=== PATIENT | female | born 1990 | race Asian ===

== ENCOUNTER 2018-08-07 07:25 | Inpatient (IN) | payer OTHER, SELFPAY ==
[2018-08-07] MEDS: Lactated Ringers 1,000 ML 15 ML IV (08:10)
[2018-08-07 08:29] LABS: Absolute Lymphocyte Count 1.78 X10^3/ul (0.83-4.51); Absolute Neutrophil Count 8.1 X10^3/uL (2.0-7.7); Basophil# 0.03 X10^3/uL; Basophil% 0.3 % (0-1); Eosinophil# 0.06 X10^3/uL; Eosinophils% 0.6 % (0-5); Hematocrit 36.8 % (37-47); Hemoglobin 11.5 g/dl (12.0-15.0); Lymphocyte # 1.78 X10^3/ul (4.0); Lymphocyte % 16.6 % (19-41); Mean Corp Hgb Conc 31.3 g/gl (32-36); Mean Corpuscular Hgb 25.7 pg (27.0-32.0); Mean Corpuscular Volume 82.1 fL (81-99); Mean Platelet Vol. 10.3 fl (6.2-12.0); Monocyte# 0.76 X10^3/uL; Monocyte% 7.1 % (0-10); Neutrophil # 8.05 X10^3/uL (2.7-7.7); Neutrophil % 75.2 % (47-70); Platelet Count 230 K/mm3 (150-450); RBC Distribution Width SD 39.2 fl (35.1-43.9); Red Blood Count 4.48 M/mm3 (4.2-5.4); White Blood Count 10.7 K/mm3 (4.4-11.0)
[2018-08-07 08:31] LABS: POSITIVE COUNT NO; POSITIVE DIFFERENTIAL NO; POSITIVE MORPHOLOGY NO
[2018-08-07] MEDS: Oxytocin 30 units/NS 500 ml 30 UNITS/500 ML IV.SOLN 334 UNITS IV (08:46)
[2018-08-07] MEDS: Acetaminophen 325 MG Tablet PO (09:17)
[2018-08-07 09:20] VITALS: BMI 23.7
[2018-08-07] MEDS: Oxytocin 30 units/NS 500 ml 30 UNITS/500 ML IV.SOLN 167 UNITS IV (09:42)
[2018-08-07] MEDS: Methylergonovine 0.2 MG/ML Ampul IM (10:07)
--- NOTE | 2018-08-07 10:13 | PCM.HP.OB ---
History Date of Admission: 08/07/18 Final AFIA: 08/10/18 Final AFIA Source: US <20 weeks Gestational age: 39 Weeks and 4 Days History of this : This is a 27 year-old, G [2], P [1], at 39+4 weeks gestational age presenting with to labor and delivery reporting initiation of ctx at 0300. Patient quickly had regular contractions less than 5 minutes apart. Patient denies VB or LOF. Patient has had uncomplicated course. Allergies No Known Allergies Allergy (Verified 08/07/18 09:11) Smoking Status: Never smoker Alcohol: None Number of Fetus(es): 1 Heart Tracing: Category I FHT noted on admission TOCO Analysis: Ctx q 2-3 minutes apart, lasting 60 seconds and palpating moderately to strong History Past Pregnancies: Past Pregnancies Delivery Date Name GA/Weeks Outcome Route Weight Infant Gender Labor Length Anesthesia Delivery Location Provider FOB 10/2015 41 weeks Live 7#1oz Female Labs: Pap negative, B+ Abs Neg, Rubella Immune, HepBsAg Neg, Syphilis NR, HIV NR, GC/CT Neg/Neg, Urine Tox Neg, Urine Culture Neg, Sequential Screen Neg, CBC WNL x 2, 1 hour GCT= 91, GBS neg Expected Infant Delivery Method: Spontaneous Vaginal Describe any other labor & delivery plans:: Desires epidural Number of Visits: 12 Review of Systems Constitutional: Denies: Chills, Fever, Weight Change HEENT: Denies: Head Aches, Sinus Congestion, Sinus Drainage Cardiovascular: Denies: Chest Pain, Palpitations Respiratory: Denies: Cough, Shortness of breath at rest, Sputum production Gastrointestinal: Denies: Abdominal Pain, Nausea, Vomiting Genitourinary: Denies: Dysuria Musculoskeletal: Denies: Joint Pain, Joint Tenderness Skin: Denies: Rash, Wounds Neurological: Denies: Numbness, Tingling, Focal weakness Psychiatric: Denies: Anxiety, Depression, Homicidal Ideations, Suicidal Ideations Hematologic/ Lymphatic: Denies: Easy Bruising, Easy Bleeding Unable to obtain accurate/complete ROS d/t: Language line with Biologics Specialist used to help complete ROS Physical Exam Vitals: See nursing notes for VS - VSS, Afebrile General: Alert, Oriented x3, No apparent distress HEENT: Atraumatic, Normocephalic. Negative for: Thyromegaly, Lymphadenopathy Cardiovascular: Regular rate, Regular Rhythm Lungs: Normal air movement Abdomen: Non Tender, Gravid, Appropriate for Gestational Age - EFW = 7# Neurological: Deep Tendon Reflexes 2+/4 and Symmetrical, Neuro grossly intact BIOMETRICS ANALYST: Normal external genitalia. Negative for: Vulvar lesions Estimated gestational size: Appropriate for gestational size Presentation: Cephalic Cervix Dilation (cm): 7 - Per urogynecology physician exam Station: 1 Effacement (%): 90 Assessment/Plan This is a 27 year-old, G [2], P [1], at 39+4 weeks gestational age, Active Labor, Category I FHT 1) Admit patient, Dr. Nolan OB back-up aware of admission 2) Anticipate Rylee Aceevdo APRN-MURIEL
--- NOTE | 2018-08-07 10:17 | HP.PCM_ITS ---
History Date of Admission: 08/07/18 Final AFIA: 08/10/18 Final AFIA Source: US <20 weeks Gestational age: 39 Weeks and 4 Days History of this : This is a 27 year-old, G [2], P [1], at 39+4 weeks gestational age presenting with to labor and delivery reporting initiation of ctx at 0300. Patient quickly had regular contractions less than 5 minutes apart. Patient denies VB or LOF. Patient has had uncomplicated course. Allergies No Known Allergies Allergy (Verified 08/07/18 09:11) Smoking Status: Never smoker Alcohol: None Number of Fetus(es): 1 Heart Tracing: Category I FHT noted on admission TOCO Analysis: Ctx q 2-3 minutes apart, lasting 60 seconds and palpating moderately to strong History Past Pregnancies: Past Pregnancies Delivery Date Name GA/Weeks Outcome Route Weight Infant Gender Labor Length Anesthesia Delivery Location Provider FOB 10/2015 41 weeks Live 7#1oz Female Labs: Pap negative, B+ Abs Neg, Rubella Immune, HepBsAg Neg, Syphilis NR, HIV NR, GC/CT Neg/Neg, Urine Tox Neg, Urine Culture Neg, Sequential Screen Neg, CBC WNL x 2, 1 hour GCT= 91, GBS neg Expected Infant Delivery Method: Spontaneous Vaginal Describe any other labor & delivery plans:: Desires epidural Number of Visits: 12 Review of Systems Constitutional: Denies: Chills, Fever, Weight Change HEENT: Denies: Head Aches, Sinus Congestion, Sinus Drainage Cardiovascular: Denies: Chest Pain, Palpitations Respiratory: Denies: Cough, Shortness of breath at rest, Sputum production Gastrointestinal: Denies: Abdominal Pain, Nausea, Vomiting Genitourinary: Denies: Dysuria Musculoskeletal: Denies: Joint Pain, Joint Tenderness Skin: Denies: Rash, Wounds Neurological: Denies: Numbness, Tingling, Focal weakness Psychiatric: Denies: Anxiety, Depression, Homicidal Ideations, Suicidal Ideations Hematologic/ Lymphatic: Denies: Easy Bruising, Easy Bleeding Unable to obtain accurate/complete ROS d/t: Language line with Tool Grinder Operator Surface used to help complete ROS Physical Exam Vitals: See nursing notes for VS - VSS, Afebrile General: Alert, Oriented x3, No apparent distress HEENT: Atraumatic, Normocephalic. Negative for: Thyromegaly, Lymphadenopathy Cardiovascular: Regular rate, Regular Rhythm Lungs: Normal air movement Abdomen: Non Tender, Gravid, Appropriate for Gestational Age - EFW = 7# Neurological: Deep Tendon Reflexes 2+/4 and Symmetrical, Neuro grossly intact RESIDENTIAL YOUTH COUNSELOR: Normal external genitalia. Negative for: Vulvar lesions Estimated gestational size: Appropriate for gestational size Presentation: Cephalic Cervix Dilation (cm): 7 - Per admissions specialist exam Station: 1 Effacement (%): 90 Assessment/Plan This is a 27 year-old, G [2], P [1], at 39+4 weeks gestational age, Active Labor, Category I FHT 1) Admit patient, Dr. Nolan OB back-up aware of admission 2) Anticipate Rylee Acevedo APRN-MURIEL
--- NOTE | 2018-08-07 10:26 | PCM.OPRPT ---
Report of Operation Date of Procedure: 08/07/18 Pre-Operative Diagnosis: Spontaneous Labor Post-Operative Diagnosis: of viable Female, 2nd degree perinal laceration Vaginal Delivery Maternal Presentation: Active Labor Amniotic Membrane Rupture Type: Artificial - By this provider at complete +2 station Amniotic Fluid Description: Clear Final AFIA: 08/10/18 Final AFIA Source: US <20 weeks Gestational age: 39 Weeks and 4 Days Date of Procedure: 08/07/18 Surgery/ Procedure Performed: Spontaneous Vaginal Delivery Type of Anesthesia: None Description of Procedure: Patient pushed well to crown and delivered a viable girl baby over 2nd degree lacerated perineum. head delivered OA and then restituted to MARY and LOT. Anterior shoulders delivered without difficulty followed by posterior shoulder and body. with spontaneous cry and respirations, Apgars 8 and 9. weight pending. Infant dried and stimulated on maternal chest and mouth and nose bulb suctioned. Umbilical cord clamped and cut by FOB once it stopped pulsing. Placenta delivered spontaneously via Shultz mechanism intact with 3VC. Placental triage WNL. FF midline 3FB below umbilicus, IV pitocin infusing per protocol for active management of the 3rd stage. Upon inspection of vaginal vault, 2nd degree perineal laceration repaired in the usual fashion with Lidocaine local analgesia and 3-0 rapide suture. Sponge and needle count correct. EBL = 250cc. Skin to skin and bonding initiated. started. Dr. Nolan notified of delivery. Rylee Acevedo WINDOWS SYSTEMS ADMINISTRATOR-CNM Presentation: Vertex, MARY Placental Delivery Description: Spontaneous Cord Vessel Description: 3 Vessels Cord Entanglement: None Estimated Blood Loss: 250 A gender: Female (1 minute): 8 (5 minute): 9 Episiotomy Description: None Laceration: Midline, Perineal Extension/lac, 2nd degree Medications given after delivery: IV Pitocin Complications: None
[2018-08-07] MEDS: Naproxen 250 MG Tablet 500 MG PO ×2 (11:05→19:41)
[2018-08-07 13:00] VITALS: BP 111/67; PULSE 85; RESP 16; TEMP 37.2
[2018-08-07 16:00] VITALS: BP 104/63; PULSE 87; RESP 16; TEMP 37.1
[2018-08-07 19:34] VITALS: BP 108/72; PULSE 69; RESP 18; TEMP 36.8
[2018-08-08 00:48] VITALS: BP 94/57; PULSE 79; RESP 18; TEMP 37.1
[2018-08-08] MEDS: Acetaminophen 500 MG Tablet 1000 MG PO (00:55)
[2018-08-08 04:00] VITALS: BP 97/56; PULSE 77; RESP 16; TEMP 36.6
[2018-08-08 08:33] VITALS: BP 97/58; PULSE 89; RESP 18; TEMP 37.3
--- NOTE | 2018-08-08 09:24 | PCM.PN.OB ---
Subjective: Patient sitting up in bed at this time. Reporting no issues at this time. Notes that baby has latched well at the breast, is going well. Patient denies any issues or complaints at this time; reports no issues with urination or ambulation. Patient denies HALLMAN, denies scotoma, denies other pain. Objective: VSS, Afebrile Nipples without cracks or blisters, no erythema noted Abdomen NT x 4 quadrants, FF midline 3FB below umbilicus +2/4 reflexes in LE, no edema, no calf tenderness BL in LE small rubra lochia, perineum well-approximated, no vulvar edema noted - Physical Exam General: Alert, Oriented x3, Cooperative HEENT: Atraumatic, Normocephalic Neck: Supple Lungs: Normal air movement Cardiovascular: Regular rate, Regular Rhythm Abdomen: Soft, Non Tender Extremities: No edema, Capillary Refill Less than 3 Seconds Skin: No rashes, No breakdown Musculoskeletal: No Tenderness to Palpation of Joints or Extremities Neurological: Cranial nerves II-XII grossly intact Psych/Mental Status: Normal Affect, Appropriate Vital Signs Temp Pulse Resp BP 99.2 F H 89 18 97/58 L 08/08/18 08:33 08/08/18 08:33 08/08/18 08:33 08/08/18 08:33 Oxygen Delivery Method Room Air Weight: 153 lb Body Mass Index (BMI) 23.7 Intake and Output for Last 24 Hours 08/06/18 08/07/18 08/08/18 23:59 23:59 23:59 Intake Total 434 / 434 Output Total 800 / 800 Balance -366 / -366 Laboratory Tests Past 24 Hrs 08/07/18 08:15 Blood Type B POSITIVE Antibody Screen NEGATIVE Medical Necessity - Tobacco Use Smoking Status: Never smoker Assessment/Plan 27 y/o now, s/p , Normal PP Course P: 1) Anticipate discharge of patient to home tomorrow 2) Continue 3) continue PP Care Rylee SHIN
--- NOTE | 2018-08-08 11:47 | NURSING ---
Teaching done with patient regarding feeding baby and self care via customs broker ipad with Maxwell ([id number]). Patient was able to ask questions via customs broker. Dr Meléndez in room to assess baby and 24hr screen info done via customs broker Terri ([id number]) and consent for Hep B obtained. Patient was able to ask questions via customs broker as well.
[2018-08-08 13:50] VITALS: BP 93/58; PULSE 86; RESP 16; TEMP 37.1
[2018-08-08 20:00] VITALS: BP 103/63; PULSE 82; RESP 16; TEMP 37.3
[2018-08-09 02:00] VITALS: BP 90/58; PULSE 82; RESP 16; TEMP 36.6
[2018-08-09 07:53] VITALS: BP 103/65; PULSE 76; RESP 18; TEMP 37.1
--- NOTE | 2018-08-09 11:31 | PCM.PN.OB ---
Subjective: [employer]ing [employer] Manager used. Patient doing well. Ambulating and voiding without difficulty. Farrukh reg diet without N/V. Lochia normal. Denies CP, SOB, leg pain. Patient desires to go home today. well - Physical Exam General: Alert, No apparent distress HEENT: Atraumatic Lungs: - - No increased resp effort Abdomen: Soft Extremities: No edema Skin: No rashes Neurological: Neuro grossly intact Psych/Mental Status: Normal Affect, Appropriate Vital Signs Temp Pulse Resp BP 98.8 F 76 18 103/65 08/09/18 07:53 08/09/18 07:53 08/09/18 07:53 08/09/18 07:53 Oxygen Delivery Method Room Air Weight: 153 lb Body Mass Index (BMI) 23.7 Intake and Output for Last 24 Hours 08/07/18 08/08/18 08/09/18 23:59 23:59 23:59 Intake Total 434 / 434 Output Total 800 / 800 Balance -366 / -366 Medical Necessity - Tobacco Use Smoking Status: Never smoker Assessment/Plan PPD#2 s/p - Doing well - - Dispo: D/c home today
--- NOTE | 2018-08-09 11:34 | PCM.DCVAG ---
Discharge Diet: No Restrictions Discharge Activity: Return to Normal Activity, May Shower, May Take a Tub Bath May resume sexual activity in: 6 weeks Weight Bearing Status: Weight bearing as tolerated, Full weight bearing Lifting Restrictions: None Call your doctor if you observe: Fever of 101 or Higher, Inability to urinate, Inability to have a bowel movement, Using more than one pad per hour, Shortness of breath, Dizziness, Chest pain, Increased palpitations (irregular heartbeat), Calf discomfort, Uncontrolled pain Instructions: After a Vaginal Additional Instructions: If you experience any of the following, contact your healthcare provider. Bleeding that soaks a pad every hour for 2 hours Fever 100.4 or higher Unrelieved incision or abdominal pain Swelling, redness, discharge or bleeding from your incision or episiotomy site Your incision begins to separate Problems urinating (including inability to urinate or burning while urinating). Visual changes Severe headache Flu-like symptoms Pain or redness in one of both of your breasts Pain, warmth, tenderness or swelling in your legs, especially the calf area Frequent nausea and vomiting Symptoms of depression or anxiety If you experience any of the following, call 911 or go to the nearest Emergency Room. Chest pain Problems breathing Seizure activity Partial or complete paralysis of a body part, slurred speech, weakness or drooping of the face, or a sudden inability to walk or hold your balance Allergies/Adverse Reactions: Allergies No Known Allergies Allergy (Verified 08/07/18 09:11) When: In 6 weeks for visit Primary Care Physician: Gustavo Granados,Out of [Primary Care Provider] - Test Results: Test results from this visit will be discussed in further detail at your follow-up appointment, if applicable. Proposed Discharge Date: 08/09/18
--- NOTE | 2018-08-09 11:36 | DCINST_ITS ---
Discharge Diet: No Restrictions Discharge Activity: Return to Normal Activity, May Shower, May Take a Tub Bath May resume sexual activity in: 6 weeks Weight Bearing Status: Weight bearing as tolerated, Full weight bearing Lifting Restrictions: None Call your doctor if you observe: Fever of 101 or Higher, Inability to urinate, Inability to have a bowel movement, Using more than one pad per hour, Shortness of breath, Dizziness, Chest pain, Increased palpitations (irregular heartbeat), Calf discomfort, Uncontrolled pain Instructions: After a Vaginal Additional Instructions: If you experience any of the following, contact your healthcare provider. * Bleeding that soaks a pad every hour for 2 hours * Fever 100.4 or higher * Unrelieved incision or abdominal pain * Swelling, redness, discharge or bleeding from your incision or episiotomy site * Your incision begins to separate * Problems urinating (including inability to urinate or burning while urinat ing). * Visual changes * Severe headache * Flu-like symptoms * Pain or redness in one of both of your breasts * Pain, warmth, tenderness or swelling in your legs, especially the calf area * Frequent nausea and vomiting * Symptoms of depression or anxiety If you experience any of the following, call 911 or go to the nearest Emergency Room. * Chest pain * Problems breathing * Seizure activity * Partial or complete paralysis of a body part, slurred speech, weakness or drooping of the face, or a sudden inability to walk or hold your balance Allergies/Adverse Reactions: Allergies No Known Allergies Allergy (Verified 08/07/18 09:11) When: In 6 weeks for visit Primary Care Physician: Gustavo Granados,Out of [Primary Care Provider] - Test Results: Test results from this visit will be discussed in further detail at your follow- up appointment, if applicable. Proposed Discharge Date: 08/09/18
[2018-08-09 12:01] VITALS: BP 101/61; PULSE 92; RESP 18; TEMP 36.8; O2SAT 98
== END 2018-08-09 13:05 | disposition home or self-care (01) | DRG 807 ==
PROVIDERS: Admitting Provider Obstetrics & Gynecology; Referring Provider Obstetrics & Gynecology; Visit Provider Obstetrics & Gynecology
DX: O70.1 Second degree perineal laceration during delivery (principal); Z37.0 Single live birth; Z3A.39 39 weeks gestation of pregnancy
CPT/HCPCS: 59025; 59050; 85025; 86850; 86900; J7120